=== PATIENT | female | born 1995 | race Hispanic/Latino ===

== ENCOUNTER 2024-11-12 16:05 | Day surgery (SDC) | payer OTHER ==
[2024-11-12 17:14] VITALS: BMI 25.6
[2024-11-12] MEDS ORDERED: hydrALAZINE 20 MG/ML VIAL SLOW IVP PRN (17:24)
[2024-11-12] MEDS: Acetaminophen 500 MG TAB PO SCH (17:57)
== END 2024-11-12 20:31 | disposition home or self-care (01) ==
LOC: CSHLD/OP 16:05
PROVIDERS: ATTEND Emergency Medicine
DX: O99.891 Other specified diseases and conditions complicating pregnancy (principal); R10.9 Unspecified abdominal pain; Z3A.34 34 weeks gestation of pregnancy; Z79.899 Other long term (current) drug therapy
CPT/HCPCS: 76817; 96360; 99283

== ENCOUNTER 2024-11-20 18:34 | Day surgery (SDC) | payer OTHER ==
[2024-11-20 19:08] VITALS: BMI 25.9
[2024-11-20] MEDS ORDERED: hydrALAZINE 20 MG/ML VIAL SLOW IVP PRN (19:44)
== END 2024-11-20 22:55 | disposition home or self-care (01) ==
LOC: CSHLD/OP 18:34
PROVIDERS: ATTEND Obstetrics & Gynecology
DX: O47.03 False labor before 37 completed weeks of gestation, third trimester (principal); O98.813 Other maternal infectious and parasitic diseases complicating pregnancy, third trimester; B37.9 Candidiasis, unspecified; Z3A.34 34 weeks gestation of pregnancy; Z67.30 Type AB blood, Rh positive; Z79.899 Other long term (current) drug therapy
CPT/HCPCS: 87480; 87510; 87660; 96360; 99284